=== PATIENT | female | born 1965 | race Caucasian/White ===

== ENCOUNTER 2016-11-27 20:28 | Emergency (ER) | payer MEDICAID, OTHER ==
[2016-11-27] MEDS ORDERED: IOPAMIDOL 370 (76%) 100 ML VIAL IV ONE (20:29)
[2016-11-27] MEDS ORDERED: DIAZEPAM 5 MG/ML SYRINGE 2 ML ONE (22:40)
[2016-11-27 22:57] LABS: ABSOLUTE NEUTROPHIL COUNT 4.9 K/mm3 (1.8-7.7); BASO # 0.1 K/mm3 (0.0-0.2); BASO % 0.5 % (0.2-1.0); EOS # 0.2 (0.0-0.5); EOS % 2.3 % (0.9-2.9); HEMATOCRIT 40.1 % (37.0-47.0); IMM NEUT% 0.2 % (0-1); LYMPH # 3.8 (1.0-4.8); LYMPH % 39.7 % (15-45); MEAN CORPUSCULAR HEMOGLOBIN 28.2 pg (27.0-31.0); MEAN CORPUSCULAR HGB CONC 32.4 g/dl (33.0-37.0); MEAN PLATELET VOLUME 10.8 fl (7.4-10.4); MONO # 0.6 (0.0-0.8); MONO % 6.3 % (4-12); PLATELET COUNT 352 K/mm3 (130-400); RED CELL DISTRIBUTION WIDTH 13.1 % (11.5-14.5)
[2016-11-27 23:12] LABS: ALB/GLOB RATIO 1.2 (>1.0); ALBUMIN 4.1 gm/dL (3.5-5.7); CALCIUM 10.8 mg/dL (8.6-10.3); MAGNESIUM 2.4 mg/dL (1.9-2.7)
[2016-11-27 23:35] LABS: CKMB 1.6 ng/ml (<4.3); TROPONIN I < 0.05 ng/ml (<0.05)
[2016-11-27 23:52] LABS: SPECIFIC GRAVITY 1.015 (1.001-1.030); URINE BILIRUBIN NEGATIVE (NEGATIVE); URINE BLOOD NEGATIVE (NEGATIVE); URINE GLUCOSE (UA) NEGATIVE (NEGATIVE); URINE LEUKOCYTE ESTERASE 1+ (NEGATIVE); URINE NITRITE POSITIVE (NEGATIVE); URINE PROTEIN NEGATIVE (NEGATIVE); URINE UROBILINOGEN NORMAL (0-1 mg/dl)
[2016-11-27 23:57] LABS: URINE APPEARANCE SL CLOUDY; URINE COLOR YELLOW
[2016-11-28 00:01] LABS: URINE BACTERIA 2+; URINE RBC 0-1 /hpf; URINE WBC 0-2 /hpf
[2016-11-28 01:58] LABS: URINE BILIRUBIN NEGATIVE (NEGATIVE); URINE BLOOD NEGATIVE (NEGATIVE); URINE GLUCOSE (UA) NEGATIVE (NEGATIVE); URINE LEUKOCYTE ESTERASE 1+ (NEGATIVE); URINE NITRITE POSITIVE (NEGATIVE); URINE PROTEIN NEGATIVE (NEGATIVE); URINE UROBILINOGEN NORMAL (0-1 mg/dl)
[2016-11-28 02:00] LABS: URINE APPEARANCE SL CLOUDY; URINE COLOR YELLOW
[2016-11-28 02:06] LABS: URINE BACTERIA 4+
[2016-11-28] MEDS ORDERED: CEPHALEXIN 500 MG CAPSULE ONE (02:20)
[2016-11-28] MEDS ORDERED: DIAZEPAM 5 MG TABLET ONE (02:48)
--- NOTE | 2016-11-28 09:59 | CT ---
Exams: CT head without contrast, CT angiogram head, CT angiogram neck INDICATION: Dizzy for one week. TECHNIQUE: CT examination of the head was obtained without contrast. CT angiogram of the head and neck was obtained following the administration of 80 mL Isovue-370 intravenous contrast using a CT angiogram protocol which was supplemented with MIP reconstructions from the CT workstation. FINDINGS: Unenhanced CT head: There is no acute intracranial hemorrhage. There is no abnormal intra or extra-axial fluid collection. There is no edema, mass effect or midline shift. Ventricles are normal in size. Cavum septum pellucidum is incidentally noted, an anatomic variant. The visualized paranasal sinuses are well aerated. There is, however, a large mixed lytic and sclerotic lesion involving the skull and the region of the left mastoid. This is of uncertain etiology and significance. This does appear chronic, with expansion and smooth remodeling of the skull suggesting a benign etiology. There are some mastoid air cells which remain aerated. CT angiogram neck: There is conventional three-vessel branching off of the aortic arch. The bilateral common carotid arteries and internal carotid arteries are widely patent. The right vertebral artery is dominant. Vertebral arteries are widely patent. Visualized mediastinum is within normal limits. Lung apices are clear. CT angiogram head: The intracranial portion of the carotid arteries are widely patent. The bilateral middle cerebral and anterior cerebral arteries are widely patent. Vertebral arteries join to form the basilar artery which is widely patent. Posterior cerebral arteries are also widely patent. No abnormal enhancement is seen following contrast administration. IMPRESSION: 1. No acute intracranial abnormality. 2. CT angiogram head and neck is within normal limits. 3. Bone lesion in the region of the left mastoid as above. 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 Whether or not this is contributing to the patient's dizziness is uncertain. Preliminary report transmitted to the emergency department from [facility] at 0023 hours and 0030 hours 11/28/2016.
== END 2016-11-28 03:39 | disposition home or self-care (01) ==
LOC: ED 20:28
DX: R42 Dizziness and giddiness (principal); N39.0 Urinary tract infection, site not specified; E11.9 Type 2 diabetes mellitus without complications; E78.5 Hyperlipidemia, unspecified; J45.909 Unspecified asthma, uncomplicated
CPT/HCPCS: 85025; 87086; 80053; 87186; 83735; 81001 ×2; 87077; 70450; 70496; 70498; 84484; 82553; 99284 ×2; 96374; A9270 ×2; J3360; Q9967